=== PATIENT | female | born 1945 | race Caucasian/White ===

== ENCOUNTER 2025-05-23 15:39 | Emergency (ER) | payer MEDICARE ==
[2025-05-23] MEDS ORDERED: Acetaminophen 325 MG TAB ONE (15:59)
== END 2025-05-23 17:30 | disposition home or self-care (01) ==
LOC: MADERS 15:39
DX: S01.01XA Laceration without foreign body of scalp, initial encounter (principal); W01.198A Fall on same level from slipping, tripping and stumbling with subsequent striking against other object, initial encounter; Z23 Encounter for immunization
CPT/HCPCS: 70450; 72125; 90471; 90715